=== PATIENT | female | born 2005 ===

== ENCOUNTER 2025-01-13 21:08 | Outpatient (REF) | payer OTHER, SELFPAY ==
--- OUTSIDE RECORDS SUMMARY | 2024-06-13 04:58 | XMS_ITS | Continuity of Care Document ---
Author Organization [facility] Address [address] [place] [address] Phone Care Team Providers Care Passementerie Worker Name Role Phone Nancy NORMA Yunior Unavailable Unavailable Allergies, Adverse Reactions, Alerts Substance Reaction Status Criticality POTASSIUM CLAVULANATE Active No Inf ormation AMOXICILLIN TRIHYDRATE Active No In formation Procedures Procedure Date Intraoral-complete Series (bw) Intraoral-complete Series (bw) Oral Hygiene Instruction Comp Oral Eval New/estab Patient 2024 Oral Hygiene Instruction Prophylaxis Adult Topical Application Of Fluoride Varnish Oral Hygiene Instruction Nutrit Couns For Control Of [place] Dis May Advance Directives Directive Yes / No Effective Date File Name No Information Encounters Encounter Description Practice Location Reason(s) For Visit Diagnoses Date Provider Providers Copied on Encounter [facility], [address] [place] [address], [id number], tel:[phone] Dental Clinic DN (chief complaint) Encounter for screening for dental disordersBody mass index [BMI] 21.0-21.9, adult Nancy Mojica. [address] [place], [place], [id number], [place]. tel:[phone] Family History Family Member Type Diagnosis Age At Onset Mother Problem Alive and well Father Problem Alive and well Payers Payer name Insurance type Covered green party ID Authoriza tion(s) Self Pay Cap [id number] Social History Type Description Quantity Date Captured Comments Alcohol Use Details Unknown Caffeine Use Details Unknown Tobacco Use Status Current non-smoker Smoking Status Never smoker Non-Smoking Tobacco Use Details : No Details Available : No Details Available [id number] SexFemale Vital Signs Date / Time: Height Weight BMI Pulse Rate Blood Pressure Temperature Respiratory Rate Body Surface Area Head Circumference Head Circ. Percentile Wt./Stan. Percentile BMI percentile Pulse Ox Inhaled Ox 10:19 AM 64.00 in 57.697 kg (127.20 lbs) 21.8 3 kg/m eter (2) 69 /min 106/65 mm[Hg] 97.10 F 1.61 meter(2) Chief Complaint And Reason For Visit From encounter dated '06/13/2024 09:58'. DN (chief complaint). Description: DN Reason For Referral Reason For Referral No Information Plan Of Treatment Date Type Action Status Goal Hepatitis C screening. Due o n due Goal PRAPARE ASSESSMENT. Due on A due Goal Depression screening. Due on due Goal Influenza vaccine. Due on Ap due Goal Unhealthy drug use screening . Due on due Goal Tdap. Due on due Goal Tdap Vaccine. Due on 2024 due Goal RLP. Due on due Goal Dietary management education , guidance, and counseling completed History Of Present Illness Encounter Date Complaint History Of Prese nt Illness DN DN Functional Status Date Functional Assessmen t No Information Instructions Date Instruction Additional Infor mation Dietary management e ducation, guidance, and counseling Related to Body mass index [BMI] 21.0-21.9, adult Assessments Type Assessment Date assessment Encounter for screening for dent al disorders assessment Body mass index [BMI] 21.0-21.9, adult Patient Care Teams Name Effective Dates (start - stop) Status Members No Information
--- OUTSIDE RECORDS SUMMARY | 2025-01-13 13:00 | XMS_ITS | Encounter Summary ---
Author Organization [facility] Address [address] [place] [address] Care Team Providers Care Platform Supervisor Name Role Phone Unallocated, Noms Provider Primary Care Provi sarahi Reason for Visit * ReasonCommentsGynecologic Exam Encounter Details DateTypeDepartmentCare Team (Latest Contact Info)Nifetqcncud32/24/2025 1:00 PM ESTOffice Visit [facility] [address] [id number] Trenton Larson DO [address] [place], [place] [id number] PCOS (polycystic ovarian syndrome) (Primary Dx); Well woman exam with routine gynecological exam; Irregular menstrual cycle Social History Tobacco UseTypesPacks/DayYears UsedDateSmoking Tobacco: NeverSmokeless Tobacco: Never Tobacco Cessation:Counseling Given: Not Answered Alcohol UseStandard Drinks/WeekCommentsNever0 (1 standard drink = 0.6 oz pure alcohol)Caffeine intake: coffee once weeklyHumiliation, Afraid, Rape, and Kick questionnaireAnswerDate RecordedWithin the last year, have you been afraid of your partner or ex-partner?No09/28/2022Within the last year, have you been humiliated or emotionally abused in other ways by your partner or ex-partner?No 09/28/2022Within the last year, have you been kicked, hit, slapped, or otherwise physically hurt by your partner or ex-partner?No09/28/2022Within the last year, have you been raped or forced to have any kind of sexual activity by your part ner or ex-partner?No09/28/2022Social Connection and Isolation PanelAnswerDate RecordedIn a typical week, how many times do you talk on the phone with family, friends, or neighbors?More than three times a week09/28/2022How often do you get together with friends or relatives?More than three times a week09/28/2022How often do you attend anabaptist or zoroastrian services?More than 4 times per year 09/28/2022o you belong to any clubs or organizations such as anabaptist groups, unions, fraternal or athletic groups, or school groups?Yes09/28/2022How often do you attend meetings of the clubs or organizations you belong to?1 to 4 times per year09/28/2022re you , , , , never , or living with a partner?Never srnvclb6709/28/2022UDIT-CAnswerDate RecordedQ1: How often do you have a drink containing alcohol?Never09/28/2022Q2: How many drinks containing alcohol do you have on a typical day when you are drinking?Patient does not drink09/28/2022Q3: How often do you have six or more drinks on one occasion?Never09/28/2022Overall Financial Resource Strain (CARDIA)AnswerDate RecordedHow hard is it for you to pay for the very basics like food, housing, medical care, and heating?Not very hard09/28/2022HQ-2AnswerDate RecordedPatient Health Questionnaire-2 Mhxpn18802/26/2022[facility] [place] of Occupational Health - Occupational Stress QuestionnaireAnswerDate RecordedDo you feel stress - tense, restless, nervous, or anxious, or unable to sleep at night because your mind is troubled all the time - these days?Only a iocybo2909/28/2022Exercise Vital SignAnswerDate RecordedOn average, how many days per week do you engage in moderate to strenuous exercise (like a brisk walk)?5 days09/28/2022On average, how many minutes do you engage in exercise at this level?60 min09/28/2022Hunger Vital SignAnswerDate RecordedWithin the past 12 months, you worried that your food would run out before you got the money to buymore.Never true09/28/2022 Within the past 12 months, the food you bought just didn't last and you didn't have money to get more.Never true09/28/2022RAPARE - TransportationAnswerDate RecordedIn the past 12 months, has lack of transportation kept you from medical appointments or from getting medications?No09/28/2022In the past 12 months, has lack of transportation kept you from meetings, work, or from getting things needed for daily living?No09/28/2022Housing Stability Vital SignAnswerDate RecordedIn the last 12 months, was there a time when you were not able to pay the mortgage or rent on time?No09/28/2022In the last 12 months, how many places have you lived?In the last 12 months, was there a time when you did not have a steady place to sleep or slept in [facility] (including now)?No 09/28/2022CommentsNoSex and Gender InformationValueDate RecordedSex Assigned at BirthNot on fileLegal ZsrKwlfzn31/15/2023 7:11 PM EDTGender Identity Not on fileSexual OrientationNot on filedocumented as of this encounter Last Filed Vital Signs Vital SignReadingTime TakenCommentsBlood Hlhmtutm37/6001/13/2025 1:12 PM EST Pulse--Temperature--Respiratory Rate--Oxygen Saturation--Inhaled Oxygen Concentration--Ibvueh95.6 kg (127 lb)01/13/2025 1:12 PM ESTHeight--Body Mass Index21.808 2:39 PM EDTdocumented in this encounter Plan of Treatment DateTypeDepartmentCare Team (Latest Contact Info)Echcekxiqdw62/07/2026 10:00 AM ESTProcedure Visit [facility] [address] [address] Trenton Larson, [address] [place]sut[place] [address] NameTypePriorityAssociated DiagnosesOrder SchedulePap SmearPathology and CytologyRoutine Well woman exam with routine gynecological exam Ordered: 01/13/2025hCG, quantitative, pregnancyLabRoutine PCOS (polycystic ovarian syndrome) Ordered: 01/13/2025T4, freeLabRoutine PCOS (polycystic ovarian syndrome) Ordered: 01/13/2025BC and differentialLabRoutine PCOS (polycystic ovarian syndrome) Ordered: 01/13/2025Follicle stimulating hormoneLabRoutine PCOS (polycystic ovarian syndrome) Ordered: 01/13/2025Luteinizing hormoneLabRoutine PCOS (polycystic ovarian syndrome) Ordered: 01/13/2025Hemoglobin R3kPghWvvuuzy PCOS (polycystic ovarian syndrome) Ordered: 01/13/2025DHEALabRoutine PCOS (polycystic ovarian syndrome) Expected: 01/13/2025 (Approximate), Expires: 01/13/2026US Pelvis w/ TVImaging Routine PCOS (polycystic ovarian syndrome) Expected: 01/13/2025, Expires: 01/13/2026ntimullerian hormone (AMH)LabRoutine Irregular menstrual cycle Expected: 01/13/2025 (Approximate), Expires: 01/13/2026ProlactinLabRoutine Irregular menstrual cycle Ordered: 01/13/2025documented as of this encounter Visit Diagnoses Diagnosis PCOS (polycystic ovarian syndrome)- Primary Polycystic ovaries Well woman exam with routine gynecological exam Routine gynecological examination Irregular menstrual cycle documented in this encounter Care Teams Team MemberRelationshipSpecialtyStart DateEnd Date Unallocated, Noms Provider, [place] [address] PCP - GeneralFamily Medicine04/03/24documented as of this encounter
--- OUTSIDE RECORDS SUMMARY | 2025-01-13 21:14 | XMS_ITS | Clinical Summary ---
Author Organization [facility] Address [address], [address] [place] [address] Care Team Providers Care Careers Adviser Name Role Phone Hakeem Ruiz DO Primary Care Provider [phone] Allergies Active AllergyReactionsCriticalityNoted DateCommentsAmoxicillinRash,HivesLow 07/14/2022 Medications MedicationSigDispense QuantityRefillsLast FilledStart DateEnd DateStatus fluticasone (FLONASE) 50 MCG/ACT nasal spray Indications:Environmental and seasonal allergies2 sprays by Each Nostril route daily 1 each 5Active azithromycin (ZITHROMAX) 250 MG tablet Indications:Acute pharyngitis, unspecified etiology,Sore wztkkr413gq on day 1 followed by 250mg on days 2 - 5 6 tablet 5103/06/2024Expired Active Problems No known active problems Encounters DateTypeDepartmentCare LcjpNbqlaktobti88/10/2025Results Follow[facility] [address] [place] [address] Shayy Allison APRN - CNP 12/25/2024 11:15 AM ESTOffice Visit [facility] [address] [place] [address] Shayy Allison APRN - CNP Acute pharyngitis, unspecified etiology (Primary Dx); Sore fkxuic2211/19/2024 8:30 AM EDTOffice Visit [facility] [address] [place] [address] Hakeem Ruiz, DO Amenorrhea (Primary Dx); Painful menstrual periods; Environmental and seasonal allergiesfrom Last 3 Months Family History Medical HistoryRelationNameCommentsEndometriosisMotherRelationNameStatusComments Mother Social History Tobacco UseTypesPacks/DayYears UsedDateSmoking Tobacco: NeverSmokeless Tobacco: Never Tobacco Cessation:Counseling Given: No Alcohol UseStandard Drinks/WeekCommentsNever0 (1 standard drink = 0.6 oz pure alcohol)[facility] UtilitiesAnswerDate RecordedIn the past 12 months has the [employer], gas, oil, or water [employer] threatened to shut off services in your home?No 06/21/2024PHQ-2AnswerDate RecordedPHQ-9 Total Zdrve771Hunger Vital Sign AnswerDate RecordedWithin the past 12 months, you worried that your food would run out before you got the money to buymore.Never true06/21/2024Within the past 12 months, the food you bought just didn't last and you didn't have money to get more.Never true06/21/2024PRAPARE - TransportationAnswerDate RecordedIn the past 12 months, has lack of transportation kept you from medical appointments or from getting medications?No06/21/2024In the past 12 months, has lack of transportation kept you from meetings, work, or from getting things needed for daily living?No06/21/2024Housing Stability Vital SignAnswerDate RecordedIn the last 12 months, was there a time when you were not able to pay the mortgage or rent on time?No06/21/2024In the past 12 months, how many times have you moved where you were living?t any time in the past 12 months, were you homeless or living in a senior living (including now)?No06/21/2024UDIT-CAnswerDate RecordedQ1: How often do you have a drink containing alcohol?Never11/19/2024Q2: How many drinks containing alcohol do you have on a typical day when you are drinking?Patient does not drink11/19/2024Q3: How often do you have six or more drinks on one occasion?Never11/19/2024Food InsecurityAnswerDate RecordedWithin the past 12 months, you worried that your food would run out before you got the money to buymore.Within the past 12 months, the food you bought just didn't last and you didn't have money to get more.Comments UnknownSex and Gender InformationValueDate RecordedSex Assigned at BirthFemale 07/08/2024 10:04 AM EDTLegal BtwPfuwdr22/16/2025 8:29 AM EDTGender Identity Anlgtx4407/08/2024 10:04 AM EDTSexual RvwubpjpfnwBslksyna87/19/2025 10:04 AM EDT Last Filed Vital Signs Vital SignReadingTime TakenCommentsBlood Xjnmhzch160/7812/25/2024 11:16 AM EST Kwiod194912/25/2024 11:16 AM WNQSslhuvjongh42.4 ??C (97.6 ??F)12/25/2024 11:16 AM ESTRespiratory Rate--Oxygen Ogyngxcxbh98%12/25/2024 11:16 AM ESTInhaled Oxygen Concentration--Edrpmp54.7 kg (125 lb)12/25/2024 11:16 AM OKFVketgk448.6 cm (5' 4 )12/25/2024 11:16 AM ESTBody Mass Index21.4612/25/2024 11:16 AM EST Plan of Treatment Health MaintenanceDue DateLast DoneCommentsVaricella vaccine (1 of 2 - 13+ 2- dose series)01/06/2017HIV ldwegd5401/06/2019HPV vaccine (1 - 3-dose series) 01/06/2019Chlamydia/GC dficej3701/07/2020Meningococcal B vaccine (1 of 2 - Standard)2020Hepatitis C iwltqh582DTaP/Tdap/Td vaccine (2 - Tdap) /Hepatitis B vaccine (1 of 3 - 19+ 3-dose series)01/06/2023 Flu vaccine (#1)09/20/2024OVID-19 Vaccine ( - season)2024Pap smear01/06/2025Depression Uajqon22605/03/2024, 06/21/2024Hepatitis A vaccineAged OutNo longer eligible based on patient's age to complete this topic Hib vaccineAged OutNo longer eligible based on patient's age to complete this topicMeningococcal (ACWY) vaccineAged OutNo longer eligible based on patient's age to complete this topicPneumococcal 0-49 years VaccineAged OutNo longer eligible based on patient's age to complete this topicPolio vaccineAged OutNo longer eligible based on patient's age to complete this topic Procedures Procedure NamePriorityDate/TimeAssociated DiagnosisCommentsCULTURE, THROAT Aaqpgir0012/25/2024 11:45 AM EST Sore throat from Last 3 Months Results * Culture, Throat (12/25/2024 11:45 AM EST)ComponentValueRef RangeTest Method Analysis TimePerformed AtPathologist SignatureThroat CultureCult,Throat: ??Oral sonido, negative for Group A Strep and other beta Cult,Throat: ??hemolytic streptococci Performed at [facility] [address] [place] [id number] ([phone] [facility]Specimen (Source)Anatomical Location / LateralityCollection Method / VolumeCollection TimeReceived TimeThroatSPECIMEN FROM THROAT / Jajepcw5012/25/2024 11:45 AM EST12/25/2024 7:22 PM EST Narrative [facility] - 12/28/2024 7:39 AM EST ORDER#: [id number] ORDERED BY: SHAYY ALLISON SOURCE: Throat Throat ?COLLECTED: ??12/25/24 11:45 ANTIBIOTICS AT [facility].: ?RECEIVED : ??12/25/24 19:22 Authorizing ProviderResult TypeResult StatusSara Allison BOAT LABORER - CNPMICROBIOLOGY - GENERAL ORDERABLESFinal ResultPerforming OrganizationAddressCity/State/ZIP Code Phone Number [facility] [address] [place] [address], [facility] [phone] from Last 3 Months Insurance Care Teams Team MemberRelationshipSpecialtyStart DateEnd Date Hakeem Ruiz DO [address] [place] [address] PCP - GeneralFamily Medicine07/19/24
--- OUTSIDE RECORDS SUMMARY | 2025-01-13 21:14 | XMS_ITS | Encounter Summary ---
Author Organization [facility] Address [address], [address] [place] [address] Care Team Providers Care Registered Vascular Technologist (Rvt) Name Role Phone Trent Ruizory Gopal PEDERSEN Primary Care Provider [phone] Encounter Details DateTypeDepartmentCare Team (Latest Contact Info)Eiwnmlmqafe18/10/2025Results Follow-Up [facility] [address] [place], [place] [id number] Shayy Allison, INTERLINE CLERK - AGRICULTURE WORKER [address] [place] [address] Social History Tobacco UseTypesPacks/DayYears UsedDateSmoking Tobacco: NeverSmokeless Tobacco: NeverAlcohol UseStandard Drinks/WeekCommentsNever0 (1 standard drink = 0.6 oz pure alcohol)[facility] UtilitiesAnswerDate RecordedIn the past 12 months has the [employer], gas, oil, or water [employer] threatened to shut off services in your home?No06/21/2024PHQ-2AnswerDate RecordedPHQ-9 Total Dlprf544Hunger Vital SignAnswerDate RecordedWithin the past 12 months, you worried that your food would run out before you got the money to buymore.Never true06/21/2024 Within the past 12 months, the food [...] were you homeless or living in a fpc (including now)?No06/21/2024 AUDIT-CAnswerDate RecordedQ1: How often do you have a drink containing alcohol? Never11/19/2024Q2: How many drinks containing alcohol do you [...] and you didn't have money to get more.1 06/21/2024CommentsUnknownSex and Gender InformationValueDate RecordedSex Assigned at MnlbnSaejrw88/19/2025 10:04 AM EDTLegal QzrEqubvl36/16/2025 8:29 AM EDTGender TkocisigGvoxca73/19/2025 10:04 AM EDTSexual OrientationStraight 07/08/2024 10:04 AM EDTdocumented as of this encounter Plan of Treatment Not on file documented as of this encounter Visit Diagnoses Not on filedocumented in this encounter Care Teams Team MemberRelationshipSpecialtyStart DateEnd Date Hakeem Ruiz DO [address] [place] [address] PCP - GeneralFamily Medicine07/19/24documented as of this encounter
--- OUTSIDE RECORDS SUMMARY | 2025-01-13 21:14 | XMS_ITS | Encounter Summary ---
Author Organization [facility] Address [address] [place] [address] Care Team Providers Care Turf Manager Name Role Phone Unallocated, Noms Provider Primary Care Provi sarahi Encounter Details DateTypeDepartmentCare Team (Latest Contact Info)Lxmlxeluzrn99/24/2025Travel Social History Tobacco UseTypesPacks/DayYears UsedDateSmoking Tobacco: NeverSmokeless [...] times a week09/28/2022How often do you attend confucianist or mu-ism services?More than 4 times per year 09/28/2022o you belong to any clubs or organizations such as confucianist groups, unions, fraternal or athletic groups, or school groups?Yes09/28/2022How often do you attend meetings of the clubs or organizations you belong to?1 to 4 times per year09/28/2022re you , , , , never , or living with a partner?Never szfatfb3909/28/2022UDIT-CAnswerDate RecordedQ1: How often do you have a [...] and heating?Not very hard09/28/2022HQ-2AnswerDate RecordedPatient Health Questionnaire-2 Fywhs06902/26/2022Fin[facility] [place] of Occupational Health - Occupational Stress QuestionnaireAnswerDate RecordedDo you feel stress - tense, restless, nervous, or anxious, or unable to sleep at night because your mind is troubled all the time - these days?Only a fhngqg7209/28/2022Exercise Vital SignAnswerDate RecordedOn average, how many days [...] steady place to sleep or slept in [place] (including now)?No 3CommentsNoSex and Gender InformationValueDate RecordedSex Assigned at BirthNot on fileLegal TciQxwwke92/15/2023 7:11 PM EDTGender Identity Not on fileSexual OrientationNot on filedocumented as of this encounter Plan of Treatment DateTypeDepartmentCare Team (Latest Contact Info)Egmfgcmaljc99/07/2026 10:00 AM ESTProcedure Visit [facility] [address] [place] [address] Trenton Larson DO [address] [place] [address] documented as of this encounter Visit Diagnoses Not on filedocumented in this encounter Care Teams Team MemberRelationshipSpecialtyStart DateEnd Date Unallocated, Noms MD Cesar [address] [place] [address] PCP - GeneralFamily Medicine04/03/24documented as of this encounter
--- OUTSIDE RECORDS SUMMARY | 2025-01-13 21:14 | XMS_ITS | Clinical Summary ---
Author Organization [facility] Address [address] [place] [address] Care Team Providers Care Mac Artist Name Role Phone Unallocated, Noms Provider Primary Care Provi sarahi Allergies Active AllergyReactionsCriticalityNoted DateCommentsAmoxicillinRash,Hives, GrdrtnoCjop92/25/2023anana (Diagnostic)08/15/2022 Other Reaction(s): lips swell, difficulty breathing Fish Protein-Containing Drug Rkbnozgp07/28/2017 Possible allergy due to family history Jpntae3706/17/2016 Possible allergy due to family history Medications MedicationSigDispense QuantityRefillsLast FilledStart DateEnd DateStatus cetirizine (ZyrTEC) 10 MG tablet Take 10 mg by mouth in the morning.05/15/2020ctive albuterol HFA 90 mcg/act inhaler Indications:Exercise-induced asthma (HCC)Inhale 2 puffs every 4 (four) hours if needed for wheezing (30 minutes prior to exercise). 18 g 07/14/2022ctive Flonase Allergy Relief 50 MCG/ACT nasal spray Administer 2 sprays into each nostril in the morning.07/23/2021ctive Active Problems ProblemNoted DateDiagnosed MmzdZqcibt20/21/2023hronic jtggpuaiavn36/26/2023 Adjustment /15/5901Wnzrbtl72/15/2023hronic icentbmtourp10/15/2023 Contracture, left ankle08/04/2022eviated nasal gzdlow3208/04/2022ysmenorrhea 08/04/2022Enlarged bxjhrgn5908/04/20227598Ptwhtedf50/15/7166Kjzkfxnkhslobg79/15/2023 Menorrhagia with irregular cycle08/04/2022Hypertrophy of nasal turbinates 08/04/2022Nasal okmafzslhgq87/15/4494Amxiruplcaunru96/15/2023Other general symptoms and signs08/04/2022atellofemoral disorder of left knee08/04/2022 Patellofemoral pain syndrome of left knee08/04/2022osttraumatic stress disorder 08/04/2022Restless legs zsjlwico69/15/2023Seasonal utoreqjkv20/15/2023OVID-19 02/20/2021Verruca bzskhopxq54/24/2020Exercise induced lzcwroxkvqtf43/15/2020 Encounters DateTypeDepartmentCare TqtuRspkftxvcad68/24/2025 1:00 PM ESTOffice Visit [facility] [address] [place] [address] Trenton Larson DO PCOS (polycystic ovarian syndrome) (Primary Dx); Well woman exam with routine gynecological exam; Irregular menstrual cycle01/13/2025amboo flowsheet [facility] [address] [place] [address] Trenton Larson DO 01/13/2025Travelfrom Last 3 Months Immunizations ImmunizationAdministration DatesNext AqeWvym8707/19/2011 Family History Medical HistoryRelationNameCommentsNo Known ProblemsFatherAllergic rhinitis MotherJill WheelerAsthmaMotherJill WheelerAsthmaSiblingEczemaSister 2Briar GxotadlZzlrndpuOuzeXdyktfAmrpymchXyybcli7JxftafWbdoiEbniqmAfqq WheelerAlive SiblingSister 12Sister 2Briar WheelerAlive Social History Tobacco UseTypesPacks/DayYears UsedDateSmoking Tobacco: NeverSmokeless [...] times a week09/28/2022How often do you attend hoahaoism or faith services?More than 4 times per year 09/28/2022o you belong to any clubs or organizations such as hoahaoism groups, unions, fraternal or athletic groups, or school groups?Yes09/28/2022How often do you attend meetings of the clubs or organizations you belong to?1 to 4 times per year09/28/2022re you , , , , never , or living with a partner?Never ajjqedm7209/28/2022UDIT-CAnswerDate RecordedQ1: How often do you have a [...] and heating?Not very hard09/28/2022HQ-2AnswerDate RecordedPatient Health Questionnaire-2 Uwups569[facility] [place] of Occupational Health - Occupational Stress QuestionnaireAnswerDate RecordedDo you feel stress - tense, restless, nervous, or anxious, or unable to sleep at night because your mind is troubled all the time - these days?Only a hdyhii4209/28/2022Exercise Vital SignAnswerDate RecordedOn average, how many days [...] steady place to sleep or slept in [facility] (including now)?No 09/28/2022CommentsNoSex and Gender InformationValueDate RecordedSex Assigned at BirthNot on fileLegal GbcBwqgsb71/15/2023 7:11 PM EDTGender Identity Not on fileSexual OrientationNot on file Last Filed Vital Signs Vital SignReadingTime TakenCommentsBlood Qmtqguur62/6011 1:12 PM EST Xigbq159610/07/2024 2:39 PM EJSMqhbigfezhh45.6 ??C (97.9 ??F)07/25/2023 9:38 AM EDTRespiratory Keze222905/21/2024 1:29 PM EDTOxygen Jqhfyxwljn30%09/07/2022 2:49 PM EDTInhaled Oxygen Concentration--Fmhfab15.6 kg (127 lb)01/13/2025 1:12 PM EST Fkbecs273.6 cm (5' 4 )10/07/2024 2:39 PM EDTBody Mass Index21.8010/07/2024 2:39 PM EDT Plan of Treatment DateTypeDepartmentCare Team (Latest Contact Info)Cvlotihifgn13/07/2026 10:00 AM ESTProcedure Visit [facility] [address] [place] [phone] Trenton Larson DO [address] [place], [place] [id number] Health MaintenanceDue DateLast DoneCommentsPneumococcal Vaccine: Pediatrics (0 to 5 Years) and At-Risk Patients (6 to 64 Years) (1 of 2 - PCV)01/06/2023OVID- 19 Vaccine (1 - 2024- season)2024Influenza Vaccine (#1)2024 Insurance Care Teams Team MemberRelationshipSpecialtyStart DateEnd Date Unallocated, Noms MD [address] [place] [address] PCP - GeneralFamily Medicine04/03/24
--- OUTSIDE RECORDS SUMMARY | 2025-01-13 21:14 | XMS_ITS | Clinical Summary ---
Author Organization [facility] [place] [place] [address] Care Team Providers Care Claim Processor Name Role Phone Angelic Velasco PA-C Primary Care Provider [phone] Social History Tobacco UseTypesPacks/DayYears UsedDateSmoking Tobacco: Never Assessed CommentsUnknownSex and Gender InformationValueDate RecordedSex Assigned at Not on fileLegal WxgFvziis26/28/2019 8:32 AM ESTGender IdentityNot on fileSexual OrientationNot on file Plan of Treatment Health MaintenanceDue DateLast DoneCommentsMMR (1 of 1 - Standard series) 01/06/2005Tetanus Diphtheria and Pertussis Vaccines (1 - Tdap)01/06/2011HPV (1 - 3-dose series)01/06/2019Vision Ivhlppeqv18/17/2019MenB (1 of 2 - MenB 2-Dose Series Bexsero)2020Hearing Dcofudbtp32/17/2022Hepatitis B (1 of 3 - 19+ 3- dose series)3COVID-19 ( - season)2024FLU (#1)10/21/2024 HIBAged OutNo longer eligible based on patient's age to complete this topic Hepatitis AAged OutNo longer eligible based on patient's age to complete this topicMenACWYAged OutNo longer eligible based on patient's age to complete this topicNirsevimabAged OutNo longer eligible based on patient's age to complete this topicPneumococcalAged OutNo longer eligible based on patient's age to complete this topicPolioAged OutNo longer eligible based on patient's age to complete this topicRotavirusAged OutNo longer eligible based on patient's age to complete this topic Insurance * Guarantor: Mario Alberto CATES TypeRelation to PatientDate of PhoneBilling AddressPersonal/FamilyFather [address] [place] [address] Care Teams Team MemberRelationshipSpecialtyStart DateEnd Date Angelic Velasco PA-C [address] [place] [phone] [facility]/19/18
--- OUTSIDE RECORDS SUMMARY | 2025-01-13 21:14 | XMS_ITS | Clinical Summary ---
Author Organization [facility] Address [address] [place] [address] Care Team Providers Care Oyster Grower Name Role Phone Angelci Velasco PA-C Primary Care Provider Ina Hopkins CARTON FORMING MACHINE OPERATOR Unavailable Allergies No known active allergies Medications No known medications Social History Tobacco UseTypesPacks/DayYears UsedDateSmoking Tobacco: Never AssessedArea Deprivation IndexAnswerDate RecordedNational Score (1-100), lower number is lower riskNot on file01/26/2020State Score (1-10), lower number is lower riskNot on file01/26/2020Data from: https://www.neighborhoodatlas.medicine.[facility].edu/. Last address used for calculationNot on file01/26/2020CommentsUnknownSex and Gender InformationValueDate RecordedSex Assigned at BirthNot on fileLegal TpbMzztew77/02/2012 7:29 AM ESTGender IdentityNot on fileSexual OrientationNot on file Plan of Treatment Health MaintenanceDue DateLast DoneCommentsPeds To Adult Transition Initial Jrxzfruywv48/17/2016Peds To Adult Transition Annual Hqcqifatgc04/17/2018HPV Vaccine (1 - 3-dose series)01/06/2019Meningococcal B Vaccine (1 of 2 - Standard) 2020Anxiety Lllowwvap94/17/2022hlamydia Screening (18-24)01/06/2022 Depression Wtvmxnrff60/17/2022GC (Gonorrhea) Screening (18-24)01/06/2022HIV Yvjyiweta95/17/2022Hepatitis C Ixfnkcxxt58/17/2022DTaP,Tdap,Td Vaccine (1 - Tdap)01/06/2023Hepatitis B Vaccine (1 of 3 - 19+ 3-dose series)01/06/2023ovid- 19 Vaccine (1 - 2024-26 season)2024Influenza Vaccine (#1)2024 Cervical Cancer Gujyzkmpv30/17/2025 Insurance MemberSubscriberPlan / Payer (Effective 2023-Present)Name: ZENIA CATES Relation to Subscriber:ChildName:DELORES CATES Date of :1970 (Home) Address: [address] [place] [address] Payer ID:Not on file Group ID:Not on file Type:Indemnity Address: [place] [id number] Care Teams Team MemberRelationshipSpecialtyStart DateEnd Date Angelic Velasco PA-C [address] [place] [address] PCP - GeneralFamily Utkmfiaz18/13/18 Ina Hopkins APRN [address] [place] [address] ReferringFamily Medicine05/03/23
--- OUTSIDE RECORDS SUMMARY | 2025-01-13 21:14 | XMS_ITS | Clinical Summary ---
Author Organization [facility] Address [address] [place] [address] Phone Care Team Providers Care Instructional Facilitator Name Role Phone Link, Dong Jamison DO Primary Care Provider [phone] Allergies Active AllergyReactionsCriticalityNoted GmhgQlwzbzzdOikugmpzkusHpreBqt81/15/2024 Medications MedicationSigDispense QuantityRefillsLast FilledStart DateEnd DateStatus cetirizine (ZyrTEC) 10 mg chewable tablet Chew once daily.Active Active Problems ProblemNoted DateDiagnosed DateMild intermittent ayiuza5910/11/2023Tonsillitis and adenoiditis, ptfuibn9210/05/2023 Social History Tobacco UseTypesPacks/DayYears UsedDateSmoking Tobacco: NeverSmokeless Tobacco: Never Tobacco Cessation:Counseling Given: Not Answered Alcohol UseStandard Drinks/WeekCommentsNever0 (1 standard drink = 0.6 oz pure alcohol)CommentsNoSex and Gender InformationValueDate RecordedSex Assigned at BirthNot on fileLegal MgiTvluxq23/15/2024 10:01 AM EDTGender IdentityNot on fileSexual OrientationNot on file Last Filed Vital Signs Vital SignReadingTime TakenCommentsBlood Ornuxxkr308/9410/11/2023 12:25 PM EDT Cxrwu959610/11/2023 12:25 PM HHBDtirvfwpyro37.6 ??C (97.8 ??F)10/11/2023 11:40 AM EDTRespiratory Pdqz327410/11/2023 12:25 PM EDTOxygen Wpokuptfjz57%10/11/2023 12:25 PM EDTInhaled Oxygen Concentration--Vaeant38.7 kg (125 lb)10/11/2023 9:04 AM EDT Kresip794.6 cm (5' 4 )10/11/2023 9:04 AM EDTBody Mass Index21.46010/11/2023 9:04 AM EDT Plan of Treatment Health MaintenanceDue DateLast DoneCommentsHIV Zhekizqnz2004Lipid Panel 2004TSH Level2004MMR Vaccines (1 of 1 - Standard series)01/06/2005 Hearing Screening (#1)2008DTaP/Tdap/Td Vaccines (2 - Td or Tdap)08/16/2011 07/19/2011HPV Vaccines (1 - 3-dose series)01/06/2019Meningococcal B Vaccine (1 of 2 - Standard)2020Hepatitis C Qssvcplth27/17/2022Hepatitis B Vaccines (1 of 3 - 19+ 3-dose series)3Pneumococcal Vaccine: Pediatrics and At-Risk Adult Patients (1 of 2 - PCV)01/06/2023Yearly Adult Vvsnoivg67/08/2024 12/27/2022, 09/07/2022Influenza Vaccine (#1)5COVID-19 Vaccine (1 - season)5Cervical Cancer Hsvirmunv97/17/2025HPV/Kvxgla6901/06/2025 Pap Smear01/06/2025Zoster Vaccines (1 of 2)01/06/2054HIB VaccinesAged OutNo longer eligible based on patient's age to complete this topicHepatitis A VaccinesAged OutNo longer eligible based on patient's age to complete this topic IPV VaccinesAged OutNo longer eligible based on patient's age to complete this topicMeningococcal VaccineAged OutNo longer eligible based on patient's age to complete this topicRotavirus VaccinesAged OutNo longer eligible based on patient's age to complete this topic Insurance Advance Directives For more information, please contact: [phone] (Available ) * Full Code (Latest Code Status on File) Date ActivatedDate InactivatedComfoxborough state hospital10/11/2023 8:55 AMQuestionAnswerComments Plan of Care:* Code Status Discussion Not Completed Decision Maker:* Provider Rationale:* Patient condition does not warrant discussion Care Teams Team MemberRelationshipSpecialtyStart DateEnd Date Link, Dong Jamison DO PCP - GeneralFamily Medicine10/11/23
--- OUTSIDE RECORDS SUMMARY | 2025-01-13 21:14 | XMS_ITS | Clinical Summary ---
Author Organization [facility] Address [address] [place] [address] Care Team Providers Care Legal Administrator Name Role Phone Unavailable Primary Care Provider Unavailabl e Source Comments The following information is NOT included in Care Everywhere downloads:Psychiatric notes, ECG results, Cardiac Rehab notes, Pulmonary Function notes, data from [employer] (includes but not limited toPregnancy data,audiograms, eye exams, pre-surgical evaluation notes, well-child exam data).[facility] Allergies Active AllergyReactionsCriticalityNoted DateCommentsFish-Derived Products 06/17/2016 Possible allergy due to family history Gdfjpo6306/17/2016 Possible allergy due to family history Medications No known medications Active Problems No known active problems Social History Tobacco UseTypesPacks/DayYears UsedDateSmoking Tobacco: NeverComments UnknownSex and Gender InformationValueDate RecordedSex Assigned at BirthNot on fileLegal EmoAwyupx11/11/2017 11:43 AM EDTGender IdentityNot on fileSexual OrientationNot on file Last Filed Vital Signs Vital SignReadingTime TakenCommentsBlood Ltbzqnme085/7905 11:51 AM EDT Tnfmj7345/30/2017 11:51 AM QLVBegacpansgm10.7 ??C (98.1 ??F)07/19/2016 9:00 AM EDTRespiratory Lkcn463707/19/2016 11:51 AM EDTOxygen Ijithcwgty888%07/19/2016 11:51 AM EDTInhaled Oxygen Concentration--Spmwjo55.5 kg (91 lb 7.9 oz)07/19/2016 9:00 AM VBCMpsjby014.9 cm (5' 1 )07/19/2016 9:00 AM EDTBody Mass Index17.29 07/19/2016 9:00 AM EDT Plan of Treatment Health MaintenanceDue DateLast DoneCommentsHIV Test01/06/2019HPV Vaccine (1 - 3- dose series)01/06/2019Meningococcal B (Bexsero,OMV) Vaccine (Optional,16-23 years)2020Hepatitis C Mettmorc40/17/2022TI Screening (Age 18-24) 01/06/2022Tdap Zmklcku8101/06/2022Hepatitis A (HAV) Vaccine (optional start 19+ years)01/06/2023Hepatitis B (HBV) Vaccine (1 of 3 - 19+ 3-dose series)01/06/2023 Tetanus (Td or Tdap) Zhubufg0001/06/2023OVID-19 Vaccine ( - 2024- season) 2024Influenza Vaccine (#1)2024Pap Smear01/06/2025Shingles (RZV) Vaccine (1 of 2)01/06/2054MammographyDiscontinuedPneumococcal Vaccine(s)Aged Out No longer eligible based on patient's age to complete this topic Insurance * Guarantor: KIM Richardson TypeRelation to PatientDate of BirthPhone Billing DllcmosMaeyixllvxxqvWielgb04/29/1973 [address] [place] [address]
--- OUTSIDE RECORDS SUMMARY | 2025-01-13 21:14 | XMS_ITS | Encounter Summary ---
Author Organization [facility] Address [address] [place] [address] Care Team Providers Care Pattern Cleaner Name Role Phone Unallocated, Noms Provider Primary Care Provi sarahi Encounter Details DateTypeDepartmentCare Team (Latest Contact Info)Lqhuvocgjyo62/24/2025amboo flowsheet [facility] [address] [place] [address] Trenton Larson, [address] [place], [facility] Social History Tobacco UseTypesPacks/DayYears UsedDateSmoking Tobacco: NeverSmokeless [...] times a week09/28/2022How often do you attend latter day or orthodox services?More than 4 times per year 09/28/2022o you belong to any clubs or organizations such as latter day groups, unions, fraMyEdu or athletic groups, or school groups?Yes09/28/2022How often do you attend meetings of the clubs or organizations you belong to?1 to 4 times per year09/28/2022re you , , , , never , or living with a partner?Never fhfecwm5309/28/2022UDIT-CAnswerDate RecordedQ1: How often do you have a [...] and heating?Not very hard09/28/2022HQ-2AnswerDate RecordedPatient Health Questionnaire-2 Yzdkq47402/26/2022[facility] [place] of Occupational Health - Occupational Stress QuestionnaireAnswerDate RecordedDo you feel stress - tense, restless, nervous, or anxious, or unable to sleep at night because your mind is troubled all the time - these days?Only a jkqnsj4709/28/2022Exercise Vital SignAnswerDate RecordedOn average, how many days [...] steady place to sleep or slept in ashelter (including now)?No 09/28/2022CommentsNoSex and Gender InformationValueDate RecordedSex Assigned at BirthNot on fileLegal DdxNkwsib57/15/2023 7:11 PM EDTGender Identity Not on fileSexual OrientationNot on filedocumented as of this encounter Plan of Treatment DateTypeDepartmentCare Team (Latest Contact Info)Vtrmakbhhez11/07/2026 10:00 AM ESTProcedure Visit [facility] [address] [place] [address] Trenton Larson DO [address] [facility] [facility] [address] [place] [address] documented as of this encounter Visit Diagnoses Not on filedocumented in this encounter Care Teams Team MemberRelationshipSpecialtyStart DateEnd Date Unallocated, Noms MD Cesar [address] [place] [address] PCP - GeneralFamily Medicine04/03/24documented as of this encounter
--- OUTSIDE RECORDS SUMMARY | 2025-01-13 21:14 | XMS_ITS | Data Portability ---
Author Organization [facility], [facility] - Address [address] [address] [address] Assessment No assessment recorded. Plan of Treatment Reminders Order DateSubmit DateProviderLast Modified ByIlan DetailsLast Modified TimeDetailsAppointmentsNone recorded.LabNone recorded.ReferralNone recorded. ProceduresNone recorded.SurgeriesNone recorded.ImagingNone recorded.Medication OrdersNone recorded. Patient TargetsNo targets recorded. Patient InstructionsNo instructions recorded. Reason for Referral None Reported. Problems Name Problem SNOMED Code Status Onset Date Resolution Date Notes Provider Name and Address Organization Details Recorded Time Anxiety 87737287 Active 03/29/2024 Donna Roy [facility] [place] [facility]03/29/2024 14:19:[id number] 03/29/2024Donna Roy [facility] [place] [facility]03/29/2024 14:19:21Disorder of thyroid [id number]/07/2025Donna Roy [facility] [place] [facility]03/29/2024 14:19:27 Problem Notes None recorded. Procedures Surgical History Date Name Laterality Status Provider Name and Address Organization Details Recorded Time 10/22/2023 tonsillectomy completedDonna Miles [facility]03/29/2024 14:19:41007/22/2023Foot SurgerycompletedDonna Miles [facility]03/29/2024 14:20:1006Foot SurgerycompletedJenna [facility]03/29/2024 14:20:0702/20/2017 [facility] 14:20:24 Imaging Results None recorded. Procedure Notes None recorded. Medical Equipment None Reported. Allergies Allergen ID Allergen Name Allergen Category Reaction Reaction Severity Criticality Documentation Date Start Date Code Code System Note Provider Name and Address Organization Details Recorded Time 80728 amoxicillin medication hives itching rash Not available Not available Not available Not bskkxafap97/07/2069123CuOjqeHokpo [facility]ich [facility]03/29/2024 14:21:14 Medications Name Sig Start Date Stop Date Status Note LastModified by Organization Details LastModified Time azithromycin 250 mg tablet TAKE 2 TABLET S by mouth today, THEN take 1 TABLET once a day FOR the next 4 DAYS. 03/29/2024ompletedNot AvailableNot AvailableNot Availableoxycodone- acetaminophen 5 mg-325 mg tabletTAKE 1 TABLET BY MOUTH THREE TIMES DAILY 03/29/2024ompletedNot AvailableNot AvailableNot Availablecephalexin 500 mg capsuleTAKE 1 CAPSULE BY MOUTH TWICE DAILY for 10 days03/29/2024ompletedNot AvailableNot AvailableNot Availablemontelukast 10 mg tabletTAKE 1 TABLET BY MOUTH EVERY DAYactiveNot AvailableNot AvailableNot Availablecefdinir 300 mg capsuleTAKE 1 CAPSULE BY MOUTH EVERY 12 HOURS FOR 10 DAYS03/29/2024ompletedNot AvailableNot AvailableNot AvailableCapmist DM 60 mg-15 mg-400 mg tabletTAKE 1 TABLET BY MOUTH EVERY 4 HOURS03/29/2024ompletedNot AvailableNot AvailableNot Available Vitals Date Recorded Body height Body mass index (BMI) Body mass index (BMI) [Percentile] Per age and sex Body weight Provider Name and Address Organization Details Last Updated DateTime 03/29/2024 162.56 cm 20.9 kg/m2 39 % 78662.27 g [facility] 03/29/2024 14:02:54 Social History Question Answer Notes LastModified by Organization D etails LastModified Time Tobacco Smoking Status Never Smoker [facility]03/29/2024 14:23:19What Is Your Relationship Status?SinglejgingerichInformation not lgduaobek77/07/2025re You Sexually Active?NojgingerichInformation not tfkhwymff53/07/2025 Sex: Unknown Functional Status Question Answer Note LastModified by Organization D etails LastModified Time Do you use any illicit or recreational drugs? 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 Family History Relationship Description Onset Age of this Age Resolved Age Notes LastModified by Organization Details LastModified Time Unspecified Relation Endometriosis (clinical) Mulitiple family membersjgingerichNot vxwabhksw05/07/2025 14:03:27Unspecified RelationAlzheimer's diseaseBoth sides, grandparentsjgingerichNot available 03/29/2024 14:21:49Unspecified RelationDisorder of thyroid glandGrandmother jgingerichNot fkfomijsy83/07/2025 14:21:59MotherMiscarriageGrandmotherjgingerich Not /07/2025 14:21:30 Medical History No medical history recorded. Gynecological History Statement/Question Response Pain with Menses Y Flow Heavy Date of LMP 03/08/2024 Sexually Active? N Duration of Flow (days) Age at Qhrkkacn26JNODtscnjkm Obstetrics History GPAL:G 0 P 0 0 0 0 Type Value Multiple Births 0 Full Term 0 Induced 0 Spontaneous 0 Premature 0 Living 0 Ectopics 0 Total 0 Past Encounters Encounter ID Performer Location Encounter Start Date Encounter Closed Date Diagnosis/Indication Diagnosis SNOMED-CT Code Diagnosis ICD10 Code Diagnosis IMO Codes Diagnosis Note [id number] Rudy Morocho MD [facility] [address] [place] [address] 03/29/2024 13:40:48 04/07/2024 14:52:10 Irregular periods 22357960 N92.6 Family history of [id number] Bayrqzjdwgbo723240028X68.6 Cejywkalsyy229950720S31.0 Health Concerns Section Related Observation LastModified by Organization Detai ls LastModified Time None Recorded Concern Status LastModified by Organization Details LastModified Time None Recorded Advance Directives Directive None Recorded Payers Insurance Date Sequence Insurance Name Policy Number Policy Martinez Covered Member ID Martinez Member ID Guarantor Name 01/29/2024 1 *SELF PAY* Zenia Cates Notes Date Note Type Note Provider Name and Address Patrickanjel giron Details Recorded Time 03/29/2024 text/html New patient presents to discuss cycle concerns. She went 9 months without a period, finally had one last month. Notes dysmenorrhea and menorrhagia. Looses several days with each menses. Menses are very irregularand always have been. Will skip 4-6 months commonly. She has family hx of endometriosis, suspects she may have it as well. History of having regular cycles. Took OCPs for brief period of time and doesn't recall pain improved. Struggles with acne, but no weight gain or unwanted hair growth. Single and not sexually active at present. Discussed the pathophysiology of menstrual abnormality and the probability of underlying pathology such as endometriosis. She is struggling with insurance coverage because [place] so wewill only move forward with hormonal evaluation at this point. Plan:1. orders given for fasting comprehensive hormones---[place] [id number], [place], [address], [place] [facility] Jusozp8003/29/2024 15:46:35 OBGyn Episode No OBEpisode recorded.
[2025-01-17 08:08] LABS: Age Gdln ACOG Testing Note (.); IGP, rfx Aptima HPV ASCU Note (.)
== END 2025-01-13 21:09 | disposition home or self-care (01) ==
LOC: LAB 21:08
PROVIDERS: Visit Provider Obstetrics & Gynecology
DX: Z01.419 Encounter for gynecological examination (general) (routine) without abnormal findings (principal)
CPT/HCPCS: 88175